=== PATIENT | male | born 1995 | race Caucasian/White ===

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

== ENCOUNTER → 2019-03-31 | Outpatient (CLI) | payer OTHER ==
[~2019-03-31] MED LIST: CONRAY-43 43% 50ML VIAL (Q9960) As Ordered ONE; PROHANCE 279.3MG/ML 5ML VIAL (A9576) As Ordered ONE
--- NOTE | 2019-03-31 09:37 | REP ---
MR ARTHROGRAM LEFT SHOULDER: TECHNIQUE: Axial T2 fat sat, coronal oblique T1, T2 fat sat, post arthrogram axial T1 fat sat, proton density, coronal oblique T1 fat sat, T2 sat, sagittal oblique T2 fat sat, ABER T1 fat sat. There is very mild ill-defined high signal on T2-weighted images in the distal supraspinatus tendon compatible with some very mild tendinopathy. No rotator cuff tendon tear is seen. Minimal hypertrophic changes are seen at the acromioclavicular joint with mild fluid in the joint. There is mild subchondral marrow edema in the distal end of the clavicle and the adjacent acromion. The acromion is type II. Biceps tendon is within the bicipital groove with no tenosynovitis. There is no Hill-Sachs deformity. The deltoid muscle demonstrates no abnormal signal. Biceps labral complex is intact. There is no evidence of a labral tear. No paralabral cyst is seen. There is no abnormal bone marrow signal in the proximal humerus. There is no joint effusion. IMPRESSION: Minor supraspinatus tendinopathy. No rotator cuff tear or labral tear. Minor hypertrophic changes acromioclavicular joint with a tiny amount of fluid in the joint and minimal subchondral marrow edema in the distal end of the clavicle and the adjacent acromion. Type II acromion. Biceps tendon and biceps labral complex intact. Electronically Signed by Govind Vee MD 04/01/2019 09:49 A
--- NOTE | 2019-04-07 13:14 | REP ---
Procedure: Right shoulder arthrogram The procedure was performed under the direct supervision of Dr. Ledesma. History: Right shoulder pain The benefits and risks including but not limited to pain, infection, bleeding and anaphylaxis were explained to the patient and informed consent was obtained. Technique: The right glenohumeral joint space was localized using fluoroscopic guidance. The skin was prepped and draped in a sterile fashion. 1% lidocaine was used as a local anesthetic. Using fluoroscopic guidance a 22 gauge spinal needle was inserted and advanced into the joint. 0.5 ml of Conray 43 was injected to verify placement. 11 ml of a solution containing 20 ml of sterile saline and 0.15 ml of ProHance was injected into the joint. The needle was removed and the patient was taken to MRI for postprocedural imaging. The the patient tolerated the procedure well and there were no immediate complications. Less than 6 seconds of fluoro time was utilized for this procedure. Electronically Signed by DOMI Paz 03/31/2019 04:16 P Electronically Signed by Juan Ledesma MD 04/07/2019 01:05 P
== END ==
LOC: M RADPRO 06:39
PROVIDERS: ATTEND Physician Assistant
DX: M75.92 Shoulder lesion, unspecified, left shoulder (principal); M65.812 Other synovitis and tenosynovitis, left shoulder
CPT/HCPCS: 23350; 73223; 77002; A9576; Q9960